=== PATIENT | female | born 2000 | race Caucasian/White ===

== ENCOUNTER → 2024-04-25 | Outpatient (CLI) | payer BC, OTHER, SELFPAY ==
[2024-04-25 08:42] LABS: Absolute Lymphocyte Count 2.98 X10^3/uL (0.83-4.51); Absolute Neutrophil Count 4.1 X10^3/uL (2.0-7.7); Basophil# 0.03 X10^3/uL; Basophil% 0.4 % (0-1); Eosinophil# 0.08 X10^3/uL; Eosinophils% 1.1 % (0-5); Hematocrit 37.9 % (37-47); Hemoglobin 12.5 g/dL (12.0-15.0); Lymphocyte # 2.98 X10^3/ul (0.83-4.51); Lymphocyte % 39.3 % (19-41); Mean Corpuscular Hgb 28.2 pg (27.0-32.0); Mean Corpuscular Volume 85.4 fL (81-99); Mean Platelet Vol. 10.7 fl (6.2-12.0); Monocyte# 0.33 X10^3/uL; Monocyte% 4.4 % (0-10); NRBC Flagged by Analyzer 0 % (0-5); Neutrophil # 4.14 X10^3/uL (2.7-7.7); Neutrophil % 54.5 % (47-70); Platelet Count 307 K/mm3 (150-450); RBC Distribution Width CV 12.5 % (11.6-14.6); RBC Distribution Width SD 38.4 fl (35.1-43.9); Red Blood Count 4.44 M/mm3 (4.2-5.4); White Blood Count 7.6 K/mm3 (4.4-11.0)
[2024-04-25 09:01] LABS: Internal QC Validated? YES +Cl - CLEAR BKGD; Pregnancy, Serum, hCG Quali. NEGATIVE Negative
[2024-04-25 09:08] LABS: Anion Gap 6 (5-15); BUN 6 mg/dL (7-18); Calcium,Total 9.5 mg/dL (8.5-10.1); Chloride 111 mmol/L (98-107); EST Glomerular Filtration Rate 131 mL/min (>60); Est Glom Filt Rate - Afr Amer 158 mL/min (>60); Glucose 100 mg/dL (74-106); Sodium Level 140 mmol/L (136-145)
--- NOTE | 2024-04-25 19:12 | TILTTABLE_ITS ---
Staff Staff: Renita Coto and Nidhi Christianson Summary Pre Test Resting HR: 69 Pre Test Resting BP: 132/83 Minimum Test HR: 79 Maximum Test HR: 117 Minimum Test BP: 120/71 Maximum Test BP: 146/98 Reason for Test Termination: Reached Maximum Test Time Physician Tilt Table Report Patient's Physicians Primary Care Physician: Dee Dee Mijares Supervisor Cytogenetic Laboratory: [facility] Indications/Diagnosis: Syncope Procedure Comments: The patient was brought to the noninvasive lab in the postabsorptive nonsedated state. Informed consent was obtained. Initial heart rate and blood pressures were also obtained with a heart rate of 69 bpm and blood pressure 132/83 mmHg. The patient was then placed in the head upright tilt position for 20 minutes. Patient maintained sinus rhythm and appropriate heart rate. No significant symptomatology was noted. After 20 minutes the patient was put back in the recumbent position and given 0.4 mg of sublingual nitroglycerin. Patient was then put back in the 70 degree head upright tilt po sition. Initial heart rate went up from 95 217 with no significant change in the blood pressure. After approximately 10 minutes the patient was put back in the recumbent position. There was no significant symptomatology noted. Summary: Negative head upright tilt table test
[2024-04-25 19:15] VITALS: BP 120/71; BP 132/83; BP 146/98
== END | disposition home or self-care (01) ==
PROVIDERS: PCP Obstetrics & Gynecology; Referring Provider Internal Medicine Cardiovascular Disease; Visit Provider Internal Medicine Cardiovascular Disease
DX: R55 Syncope and collapse (principal)
CPT/HCPCS: 36415; 80048; 84703; 85025; 93660; J7040; A4216

== ENCOUNTER → 2024-05-26 | Outpatient (CLI) | payer BC, OTHER, SELFPAY ==
--- NOTE | 2024-05-26 08:05 | ECHOCS_ITS ---
Reason For Study: SYNCOPE Procedure This was a 2D Doppler, Color Flow transthoracic echocardiogram. The study was technically difficult. Contrast injection was performed. Exam performed in department. Left Ventricle Normal LV size. The left ventricular ejection fraction is 55 %. Stage 2 diastolic dysfunction. No regional wall motion abnormalities noted. Right Ventricle Normal RV size. Normal systolic function. Atria Normal left atrium. Normal right atrium. Bubble contrast study negative for right to left interatrial shunt. Mitral Valve Normal mitral valve. Tricuspid Valve The tricuspid valve is not well visualized. Aortic Valve The aortic valve is not well visualized. Pulmonic Valve Normal pulmonic valve. Great Vessels Normal aortic root. Pericardium/Pleural No pericardial effusion. Medication 22 gauge I.V. with prn adaptor inserted into right arm. Diluted definity 1.5ml given slow IV push to enhance endocardial definition. Performed a rapid injection of agitated mix of 9 cc saline and 1cc air to assess for atrial septal defect. MMode/2D Measurements & Calculations RVDd: 3.2 cm LVOT diam: 2.1 cm Ao root diam: 2.8 cm LVOT area: 3.5 cm2 LAV(MOD-bp): 43.5 ml SV(MOD-sp4): 69.4 ml LVAd ap4: 36.3 cm2 LAV(MOD-bp) Indexed: 19.7 ml/m2 LVLd ap4: 8.2 cm LAV(MOD-sp2): 47.0 ml EDV(MOD-sp4): 131.3 ml LAV(MOD-sp4): 39.4 ml EDV(sp4-el): 136.1 ml LVAs ap4: 22.9 cm2 LVLs ap4: 6.8 cm ESV(MOD-sp4): 61.9 ml ESV(sp4-el): 65.1 ml EF(MOD-sp4): 52.9 % EF(sp4-el): 52.2 % SV(sp4-el): 71.0 ml LA dimension(2D): 4.0 cm LA A4 area: 14.5 cm2 TAPSE: 2.2 cm RA A4 area: 14.2 cm2 Time Measurements MV dec time: 0.16 sec Doppler Measurements & Calculations MV E max yasir: 69.9 cm/sec Lat Peak E' Yasir: 18.7 cm/sec Med Peak E' Yasir: 12.1 cm/sec MV A max yasir: 43.2 cm/sec E/E' lat: 3.7 E/E' med: 5.8 MV E/A: 1.6 MV V2 max: 94.1 cm/sec MV dec slope: 486.6 cm/sec2 Ao V2 max: 122.3 cm/sec MV max P.5 mmHg Ao max P.0 mmHg MV V2 mean: 50.6 cm/sec Ao V2 mean: 86.7 cm/sec MV mean P.3 mmHg Ao mean P.4 mmHg MV V2 VTI: 22.0 cm Ao V2 VTI: 26.1 cm MVA(VTI): 3.5 cm2 AV (velocity ratio): 0.86 REGINALD(I,D): 3.0 cm2 REGINALD(V,D): 3.0 cm2 LV V1 max: 106.4 cm/sec SV(LVOT): 77.9 ml PA V2 max: 91.5 cm/sec LV V1 max P.5 mmHg PA V2 mean: 60.5 cm/sec LV V1 mean P.3 mmHg LV V1 mean: 70.9 cm/sec LV V1 VTI: 22.5 cm ECHO/Echo Complete W/ Contrast Interpretation Summary Normal LV size. The left ventricular ejection fraction is 55 %. Stage 2 diastolic dysfunction. Contrast injection was performed. Ordering Physician: Ta Ramírez Referring Physician: Ta Ramírez Performed By: Meme Figueroa RCS
== END | disposition home or self-care (01) ==
LOC: CVS 08:05
PROVIDERS: PCP Obstetrics & Gynecology; Referring Provider Internal Medicine Cardiovascular Disease; Visit Provider Internal Medicine Cardiovascular Disease
DX: R55 Syncope and collapse (principal)
CPT/HCPCS: 93306; Q9957; A4216; C8929